=== PATIENT | female | born 1965 ===

== ENCOUNTER 2021-05-14 06:00 | Day surgery (SDC) | payer OTHER ==
[~2021-05-14 06:00] MED LIST: CALTRATE 600+D1 EAC1 PO; CLARIT PO; CLARITIN10 MG PO; ESTRAD PO; MACULAR VITAMI1 EACH PO; PREVACID15 MG PO; PREVASTATIN PO; PROMETRIUM200 MG PO; SINGULAIR10 MG PO; THYROID ARMOUR PO; VITAMIN D-40010 MCG; [UNRECOGNIZED DRUG - OTHER] IH
[2021-05-14] MEDS ORDERED: PERCOCET 5-3251 EACH PO (16:28)
[2021-05-14] MEDS ORDERED: DUI500 PO (16:28)
[2021-05-14] MEDS ORDERED: ALEVE220 M1 PO (16:28)
== END 2021-05-14 19:25 | disposition home or self-care (01) ==
LOC: CIR.AMB 06:00
PROVIDERS: ATTEND Orthopaedic Surgery
DX: S52.502A Unspecified fracture of the lower end of left radius, initial encounter for closed fracture (principal); J45.909 Unspecified asthma, uncomplicated; M81.0 Age-related osteoporosis without current pathological fracture; S52.692A Other fracture of lower end of left ulna, initial encounter for closed fracture